=== PATIENT | male | born 1955 | race Caucasian/White ===

== ENCOUNTER 2022-07-30 08:08 | Emergency (ER) | payer OTHER, MEDICARE, SELFPAY ==
--- NOTE | 2022-07-30 08:12 | ED.URI ---
HPI - URI/Sore Throat General Chief Complaint: Upper Respiratory Infection Stated Complaint: cold sx Time Seen by Provider: 07/30/22 08:18 Source: patient, RN notes reviewed and old records reviewed Mode of arrival: ambulatory Limitations: no limitations History of Present Illness HPI Narrative: 67-year-old male presents to the [facility] with cough and sinus congestion since Tuesday, 5 days. Has not taken any [id number] products. Reports fever Tuesday night, no fever since. Reports a productive cough. Patient has a history of diabetes, thyroid disease. Onset (ago): day(s) (5) Consistency: constant Treatments prior to arrival: none Related Data Home Medications Medication Instructions Recorded Confirmed dulaglutide 1.5 mg/0.5 mL 1.5 mg subcut DAILY 07/15/19 07/30/22 subcutaneous pen injector (Trulicity) levothyroxine 50 mcg tablet 50 mcg PO DAILY 07/15/19 07/30/22 dapagliflozin 5 mg-metformin ER 1 tablet PO DAILY 07/30/22 07/30/22 1,000 mg tablet,extended release 24hr (Xigduo XR) diclofenac sodium 1 % topical gel 1 ea topical DIRECTED 07/30/22 07/30/22 lovastatin 10 mg tablet 10 mg PO DAILY 07/30/22 07/30/22 Allergies Allergy/AdvReac Type Severity Reaction Status Date / Time No Known Allergies Allergy Verified 07/30/22 08:10 Review of Systems Review of Systems: All systems reviewed & are unremarkable except as noted in HPI and below Constitutional: Constitutional: Denies chills, Reports fatigue and Reports fever(s) Eyes: Eyes: Reports no additional eye complaints ENT: Reports as per HPI and Reports nasal congestion Cardiovascular: Cardiovascular: Reports no additional cardiovascular complaints Respiratory: Respiratory: Reports as per HPI, Reports chest congestion, Reports cough, Denies dyspnea and Denies wheezing Gastrointestinal: Gastrointestinal: Reports no additional gastrointestinal complaints Musculoskeletal: Musculoskeletal: Reports no additional musculoskeletal complaints Integumentary/Breasts: Skin/Breast: Reports system reviewed and no additional complaints, except as docu Neurologic: Reports system reviewed and no additional complaints, except as documented Psychiatric: Psychiatric: Reports no additional psychiatric complaints Allergic/Immunologic: Allergic/Immunologic: Reports no additional allergic/immunologic complaints PMFSH Past Medical History Medical History Diabetes Hx of radiation therapy Hypothyroidism Throat cancer Social History Social History Smoking status: Former smoker Comments At the time of my signature, I reviewed and agree with the nursing past medical, surgical, social, and family history. There is no relevant family history pertinent to the patient complaint. Exam Const: General: healthy appearing, comfortable, no acute distress, well developed, alert and well nourished Nutritional Appearance: well nourished Orientation/consciousness: patient oriented x3 Limitations: no limitations HENMT: Head: normal to inspection Ears: external ears normal, EAC's normal and TM abnormal with fluid behind the TM bilateral Face/Nose/Sinus: Normal external nose present and Normal nares present Face and sinus: normal facial exam and sinus tenderness frontal and maxillary Mouth: Yes Normal oral and palatal mucosa present, Yes lip normal and Yes moist mucous membranes Throat: posterior oropharynx normal and uvula midline Eyes: General: appearance normal, both eyes and all related structures Conjunctivae: conjunctivae normal Pupils: Equal, round and reactive pupils present Neck: Neck: normal visual inspection, full ROM, no lymphadenopathy and no meningeal signs Chest: Chest palpation & inspection: normal inspection of the chest Resp: Effort & Inspection: normal respiratory effort and no use of accessory muscles Auscultation: clear to auscultatio
[2022-07-30 08:19] VITALS: BP 123/77; PULSE 69; RESP 16; TEMP 35.9; O2SAT 99
== END 2022-07-30 08:35 | disposition home or self-care (01) ==
PROVIDERS: Emergency Provider Nurse Practitioner
DX: J32.9 Chronic sinusitis, unspecified (principal); J40 Bronchitis, not specified as acute or chronic; E11.9 Type 2 diabetes mellitus without complications; E03.9 Hypothyroidism, unspecified; Z87.891 Personal history of nicotine dependence; Z85.818 Personal history of malignant neoplasm of other sites of lip, oral cavity, and pharynx; Z92.3 Personal history of irradiation
CPT/HCPCS: 99213; G0463

== ENCOUNTER 2022-10-30 11:00 | Emergency (ER) | payer OTHER, MEDICARE, SELFPAY ==
[2022-10-30 11:22] VITALS: BP 113/71; PULSE 89; RESP 16; TEMP 37.2; O2SAT 96
--- NOTE | 2022-10-30 11:55 | ED.URI ---
HPI - URI/Sore Throat General Chief Complaint: Upper Respiratory Infection Stated Complaint: cold sx Time Seen by Provider: 10/30/22 11:55 Source: patient and RN notes reviewed Mode of arrival: ambulatory Limitations: no limitations History of Present Illness HPI Narrative: 59-year-old male presented for complaint of sinus pressure, nasal congestion, postnasal drainage intermittently over the last 2 weeks. He states his symptoms will improve and then worsen. He states this morning he work with severe sinus pressure. He denies associated nausea, vomiting, diarrhea, fevers or chills. He is taking NyQuil for symptoms. MD elicited complaint: cough Related Data Home Medications Medication Instructions Recorded Confirmed dulaglutide 1.5 mg/0.5 mL 1.5 mg subcut DAILY 07/15/19 10/30/22 subcutaneous pen injector (Trulicity) levothyroxine 50 mcg tablet 50 mcg PO DAILY 07/15/19 10/30/22 dapagliflozin 5 mg-metformin ER 1 tablet PO DAILY 07/30/22 10/30/22 1,000 mg tablet,extended release 24hr (Xigduo XR) lovastatin 10 mg tablet 10 mg PO DAILY 07/30/22 10/30/22 Allergies Allergy/AdvReac Type Severity Reaction Status Date / Time No Known Allergies Allergy Verified 10/30/22 11:32 Review of Systems Review of Systems: CONSTITUTIONAL: Denies malaise, chills, sweats, fever EYES: Denies visual changes, redness, or discharge ENT: Reports rhinorrhea, congestion, sinus pain, denies otalgia, sore throat CARDIOVASCULAR: Denies chest pain, palpitations, edema RESPIRATORY: Reports cough, post nasal drainage. Denies dyspnea GASTROINTESTINAL: Denies abdominal pain, nausea, vomiting, diarrhea SKIN: Denies rash or itching MUSCULOSKELETAL: Endorses myalgia NEUROLOGIC: Denies headache PMFSH Past Medical History Medical History Diabetes Hx of radiation therapy Hypothyroidism Throat cancer Social History Social History Smoking status: Former smoker Exam Narrative: GENERAL: Ill-appearing, nontoxic EYES: PERRLA, conjunctivae clear ENT: Mucous membranes moist. Nasal congestion TMs pearly thomas with dull light reflex bilaterally; no tragal tenderness. Oropharynx erythematous without lesions or exudate, no drooling, no hoarseness, no trismus, uvula midline. CHEST: Clear to auscultation, breath sounds equal. No wheezing, rhonchi, rales, or stridor. No respiratory distress, speaks in full sentences. HEART: Regular rate and rhythm. No murmur heard. SKIN: Warm, dry, no rash. NEURO: Alert and oriented x3. PSYCH: Normal mood and affect Course Course Emergency Course: Patient is aware of diagnosis, understands and agrees to treatment plan. Anticipatory guidance given. Patient agrees to follow-up as directed and is aware of reasons to seek care at the emergency department. Portions of this record may have been created with voice recognition software Level of Care: Express Care Visit Vital Signs Vital signs: Vital Signs Temperature 99.0 F 10/30/22 11:22 Pulse Rate 89 10/30/22 11:22 Respiratory Rate 16 10/30/22 11:22 Blood Pressure 113/71 10/30/22 11:22 Pulse Oximetry 96 10/30/22 11:22 Oxygen Delivery Room Air 10/30/22 11:22 Temperature 99.0 F 10/30/22 11:22 Pulse Rate 89 10/30/22 11:22 Respiratory Rate 16 10/30/22 11:22 Blood Pressure 113/71 10/30/22 11:22 Pulse Oximetry 96 10/30/22 11:22 Oxygen Delivery Room Air 10/30/22 11:22 reviewed MDM - URI/Sore Throat MDM Narrative Medical decision making narrative: Advised supportive measures and signs/symptoms to go to the ER. Pt is appropriate for outpt treatment and f/u. Differential Diagnosis Differential diagnosis: Likely upper respiratory infection, sinusitis and viral infection Discharge Plan Discharge Clinical Impression: Upper respiratory infection Patient Disposition: Home, Self-Care Condition:
== END 2022-10-30 12:07 | disposition home or self-care (01) ==
PROVIDERS: Emergency Provider Nurse Practitioner Family; PCP Internal Medicine
DX: J06.9 Acute upper respiratory infection, unspecified (principal); E11.9 Type 2 diabetes mellitus without complications; Z79.84 Long term (current) use of oral hypoglycemic drugs; E03.9 Hypothyroidism, unspecified; Z85.21 Personal history of malignant neoplasm of larynx; Z92.3 Personal history of irradiation; Z87.891 Personal history of nicotine dependence
CPT/HCPCS: 99213; G0463